=== PATIENT | male | born 1990 | race Caucasian/White ===

== ENCOUNTER 2022-11-28 00:26 | Emergency (ER) | payer BC ==
[2022-11-28 00:40] VITALS: BP 117/79; PULSE 66; RESP 18; TEMP 97.4
[2022-11-28] MEDS ORDERED: DIPH,PERTUS(ACELL)TETVAC-LF 0.5 ML VIAL IM ONE (01:11)
--- NOTE | 2022-11-28 01:18 | ED ---
General Adult HPI - General Chief complaint: Skin/Abscess/Foreign Body Stated complaint: Fall, Head Injury Time Seen by Provider: 11/28/22 01:03 Source: patient, RN notes reviewed, old records reviewed Mode of arrival: ambulatory - History of Present Illness Initial comments: 32-year-old male presenting for evaluation of scalp injury. Patient was wearing a hat with the patient and tripped and fell striking the top of his head. The patient had lacerated his scalp and there was bleeding. No loss conscious. No anticoagulation. - Related Data Allergies Allergy/AdvReac Type Severity Reaction Status Date / Time No Known Allergies Allergy Verified 11/28/22 00:40 Review of Systems ROS Statement: Those systems with pertinent positive or pertinent negative responses have been documented in the HPI. ROS Other: All systems not noted in ROS Statement are negative. Past Medical History Past Medical History: No Reported History History of Any Multi-Drug Resistant Organisms: None Reported Past Surgical History: No Surgical Hx Reported Past Psychological History: No Psychological Hx Reported Smoking Status: Never smoker Past Alcohol Use History: Occasional Past Drug Use History: None Reported General Exam General appearance: alert Head exam: Present: other (J-shaped laceration approximately 1 cm central scalp) Eye exam: Present: normal appearance, PERRL ENT exam: Present: normal exam Neck exam: Present: normal inspection. Absent: tenderness, meningismus Respiratory exam: Present: normal lung sounds bilaterally. Absent: respiratory distress, wheezes Cardiovascular Exam: Present: regular rate, normal rhythm GI/Abdominal exam: Present: soft. Absent: distended, tenderness Neurological exam: Present: alert, oriented X3, CN II-XII intact. Absent: motor sensory deficit Skin exam: Present: warm, dry Course Vital Signs 11/28/22 00:29 Temperature 97.4 F L Pulse Rate 66 Respiratory 18 Rate Blood Pressure 117/79 O2 Sat by Pulse 98 Oximetry Procedures - Laceration Laceration #1 Consent Obtained: verbal consent Indication: laceration Site: scalp Size (cm): 1 Description: flap Depth: simple, single layer Pre-repair: wound explored, irrigated extensively Type of Sutures: other (jone) Number of Sutures: 1 Technique: simple, interrupted Medical Decision Making - Medical Decision Making Was pt. sent in by a medical professional or institution (, PA, GROUP HOME PARAPROFESSIONAL, urgent care, hospital, or alf...) When possible be specific @ -No Did you speak to anyone other than the patient for history (EMS, parent, family, police, friend...)? What history was obtained from this source @ -No Did you review nursing and triage notes (agree or disagree)? Why? @ -I reviewed and agree with nursing and triage notes Were old charts reviewed (outside hosp., previous admission, EMS record, old EKG, old radiological studies, urgent care reports/EKG's, alf records)? Report findings @ -No old charts were reviewed Differential Diagnosis (chest pain, altered mental status, abdominal pain women, abdominal pain men, vaginal bleeding, weakness, fever, dyspnea, syncope, headache, dizziness, GI bleed, back pain, seizure, CVA, palpatations, mental health, musculoskeletal)? @ -Scalp laceration EKG interpreted by me (3pts min.). @ -As above X-rays interpreted by me (1pt min.). @ -None done CT interpreted by me (1pt min.). @ -None done U/S interpreted by me (1pt. min.). @ -None done What testing was considered but not performed or refused? (CT, X-rays, U/S, labs)? Why? @ -None What meds were considered but not given or refused? Why? @ -None Did you discuss the management of the patient with other professionals (professionals i.e. , PA, GROUP HOME PARAPROFESSIONAL, lab, RT, psych nurse, psychologist social, flexboard operator, teacher, maritime officer, case packer)? Give summary @ -No Was smoking cessation discussed for >3mins.? @ -No Was critical care preformed (if so, how long)? @ -No Were there social determinants of health that impacted care today? How? (Homelessness, low income, unemployed, alcoholism, drug addiction, transpor tation, low edu. Level, literacy, decrease access to med. care, long-term, rehab)? @ -No Was there de-escalation of care discussed even if they declined (Discuss DNR or withdrawal of care, Hospice)? DNR status @ -No What co-morbidities impacted this encounter? (DM, HTN, Smoking, COPD, CAD, Cancer, CVA, ARF, Chemo, Hep., AIDS, mental health diagnosis, sleep apnea, morbid obesity)? @ -None Was patient admitted / discharged? Hospital course, mention meds given and route, prescriptions, significant lab abnormalities, going to OR and other pertinent info. @ -Scalp laceration, stapled to the emergency department. Discharged home Undiagnosed new problem with uncertain prognosis? @ -No Drug Therapy requiring intensive monitoring for toxicity (Heparin, Nitro, Insulin, Cardizem)? @ -No Were any procedures done? @ -No Diagnosis/symptom? @ -Scalp laceration Acute, or Chronic, or Acute on Chronic? @ -acute Uncomplicated (without systemic symptoms) or Complicated (systemic symptoms)? @ -default Side effects of treatment? @ -No Exacerbation, Progression, or Severe Exacerbation? @ -No Poses a threat to life or bodily function? How? (Chest pain, [place], [place], pneumonia, PE, COPD, DKA, ARF, appy, cholecystitis, CVA, Diverticulitis, Homicidal, Suicidal, threat to staff... and all critical care pts) @ -No Disposition Clinical Impression: Scalp laceration Disposition: HOME SELF-CARE Condition: Good Instructions (If sedation given, give patient instructions): Laceration (ED) Additional Instructions: Please return for staple removal in 10-14 days Is patient prescribed a controlled substance at d/c from ED?: No Referrals: None,Stated [Primary Care Provider] - 1-2 days Time of Disposition: 01:18
== END 2022-11-28 01:43 | disposition home or self-care (01) ==
LOC: EC 00:26
DX: S01.01XA Laceration without foreign body of scalp, initial encounter (principal); Z23 Encounter for immunization; W01.0XXA Fall on same level from slipping, tripping and stumbling without subsequent striking against object, initial encounter
CPT/HCPCS: 12001; 90471; 90715; 99282

== ENCOUNTER 2023-02-26 21:24 | Emergency (ER) | payer BC ==
[2023-02-26 22:06] VITALS: BP 121/70; PULSE 57; RESP 18; TEMP 98.2
[2023-02-26] MEDS ORDERED: TOPICAL SKIN ADHESIVE 1 EACH AMP TOPICAL ONE (22:34)
--- NOTE | 2023-02-26 22:38 | ED ---
General Adult HPI - General Chief complaint: Syncope Stated complaint: syncope Time Seen by Provider: 02/26/23 22:17 Source: patient Mode of arrival: ambulatory Limitations: no limitations - History of Present Illness Initial comments: Jhonny is a healthy 32-year-old male presents the ER today after a syncopal episode at home. Patient reports he was standing up urinating when he began to get lightheaded his vision got dark and the next thing he knew he was on the floor. He had struck his chin on the toilet. Patient denies any chest pain, palpitations or shortness of breath. Denies any headache or vision changes. Complains only of laceration on his chin. Tetanus was updated less than 2 years ago. Patient has no significant past medical history. No cardiac history. No history of arrhythmias. No history of DVT or PE. - Related Data Allergies Allergy/AdvReac Type Severity Reaction Status Date / Time No Known Allergies Allergy Verified 02/26/23 22:02 Review of Systems ROS Statement: Those systems with pertinent positive or pertinent negative responses have been documented in the HPI. ROS Other: All systems not noted in ROS Statement are negative. Past Medical History Past Medical History: No Reported History History of Any Multi-Drug Resistant Organisms: None Reported Past Surgical History: No Surgical Hx Reported Past Psychological History: No Psychological Hx Reported Smoking Status: Never smoker Past Alcohol Use History: Occasional Past Drug Use History: None Reported General Exam - General Exam Comments Initial Comments: Physical Exam GENERAL: Patient is well-developed and well-nourished. Patient is nontoxic and well- hydrated and is in no distress. HENT: Normocephalic Approximately 1 cm laceration on the inferior side of the chin, no active bleeding TMs normal bilaterally. Tympanic EYES: PERRL, EOMI PULMONARY: Unlabored respirations. No audible rales rhonchi or wheezing was noted. CARDIOVASCULAR: There is a regular rate and rhythm without any murmurs gallops or rubs. ABDOMEN: Soft and nontender with normal bowel sounds. SKIN: Skin is clear with no lesions or rashes and otherwise unremarkable. : Deferred NEUROLOGIC: Patient is alert and oriented x3. Moving all extremities spontaneously MUSCULOSKELETAL: Normal extremities with adequate strength and full range of motion. No lower extremity swelling or edema. No calf tenderness. No midline cervical spine tenderness PSYCHIATRIC: Normal psychiatric evaluation. Limitations: no limitations Course Vital Signs 02/26/23 22:02 Temperature 98.2 F Pulse Rate 57 L Respiratory 18 Rate Blood Pressure 121/70 O2 Sat by Pulse 98 Oximetry EKG Findings - EKG Comments: EKG Findings:: EKG was ordered and interpreted by me, EKG was obtained at 2214 rate is 66 rhythm is narrow complex regular rhythm with a P-wave before each QRS is consistent with a sinus rhythm. There is normal axis, normal intervals, ND 159, QRS 106, QTC 387, There are no acute ST elevations or depressions no evidence of ischemia, infarction or arrhythmia. Procedures - Laceration Laceration #1 Consent Obtained: verbal consent Indication: laceration Site: face Size (cm): 1 Description: linear Depth: simple, single layer Pre-repair: wound explored, deep structures intact Type of Sutures: other (Skin glue) Patient Tolerated Procedure: well, no complications Medical Decision Making - Medical Decision Making Patient was seen and evaluated history is obtained from patient. 32-year-old male episode of micturition syncope. Patient has a laceration to his chin his tetanus at this is up-to-date. His EKG was nonischemic with no arrhythmias. His vital signs were stable in the emergency department. At this time further workup for syncope is not indicated as the patient asymptomatic and stable in the ER. Patient was advised to return to the emergency department should he have recurrent syncope or any new or concerning symptoms. wound was repaired and patient was stable for discharge home with outpatient follow-up. Was pt. sent in by a medical professional or institution (, PA, GARD[employer] EQUIPMENT MECHANIC, urgent care, hospital, or senior living...) When possible be specific @ -No Did you speak to anyone other than the patient for history (EMS, parent, family, police, friend...)? What history was obtained from this source @ - at bedside Did you review nursing and triage notes (agree or disagree)? Why? @ -I reviewed and agree with nursing and triage notes Were old charts reviewed (outside hosp., previous admission, EMS record, old EKG, old radiological studies, urgent care reports/EKG's, senior living records)? Report findings @ -No old charts were reviewed Differential Diagnosis (chest pain, altered mental status, abdominal pain women, abdominal pain men, vaginal bleeding, weakness, fever, dyspnea, syncope, headache, dizziness, GI bleed, back pain, seizure, CVA, palpatations, mental health, musculoskeletal)? @ -Differential Syncope: Valvular disease, hypertrophic cardiomyopathy, pulmonary embolism, tamponade, tachycardia, bradycardia, [place], hypovolemia, hemorrhage, dissection, anemia, intracranial hemorrhage, seizure, hypoglycemia, carbon monoxide poisoning, this is not meant to be an all-inclusive list. EKG interpreted by me (3pts min.). @ -As above X-rays interpreted by me (1pt min.). @ -None done CT interpreted by me (1pt min.). @ -None done U/S interpreted by me (1pt. min.). @ -None done What testing was considered but not performed or refused? (CT, X-rays, U/S, labs)? Why? @ -None What meds were considered but not given or refused? Why? @ -None Did you discuss the management of the patient with other professionals (anusha candelaria i.e. , PA, G[employer] EQUIPMENT MECHANIC, lab, RT, psych nurse, social media editor, door clamp operator, teacher, gunnery/ordnance officer, family service caseworker)? Give summary @ -No Was smoking cessation discussed for >3mins.? @ -No Was critical care preformed (if so, how long)? @ -No Were there social determinants of health that impacted care today? How? (Homelessness, low income, unemployed, alcoholism, drug addiction, transportation, low edu. Level, literacy, decrease access to med. care, care home, rehab)? @ -No Was there de-escalation of care discussed even if they declined (Discuss DNR or withdrawal of care, Hospice)? DNR status @ -No What co-morbidities impacted this encounter? (DM, HTN, Smoking, COPD, CAD, Cancer, CVA, ARF, Chemo, Hep., AIDS, mental health diagnosis, sleep apnea, morbid obesity)? @ -None Was patient admitted / discharged? Hospital course, mention meds given and route, prescriptions, significant lab abnormalities, going to OR and other pertinent info. @ -Discharge Undiagnosed new problem with uncertain prognosis? @ -No Drug Therapy requiring intensive monitoring for toxicity (Heparin, Nitro, Insulin, Cardizem)? @ -No Were any procedures done? @ -Laceration repair as above Diagnosis/symptom? @ -Syncope Acute, or Chronic, or Acute on Chronic? @ -Acute Uncomplicated (without systemic symptoms) or Complicated (systemic symptoms)? @ -Complicated Side effects of treatment? @ -No Exacerbation, Progression, or Severe Exacerbation? @ -No Poses a threat to life or bodily function? How? (Chest pain, [place], [place], pneumonia, PE, COPD, DKA, ARF, appy, cholecystitis, CVA, Diverticulitis, Homicidal, Suicidal, threat to staff... and all critical care pts) @ -NO Diagnosis/symptom? @ -Chin laceration Acute, or Chronic, or Acute on Chronic? @ -Acute Uncomplicated (without systemic symptoms) or Complicated (systemic symptoms)? @ -Uncomplicated Side effects of treatment? @ -none Exacerbation, Progression, or Severe Exacerbation] @ -no Poses a threat to life or bodily function? @ -no Disposition Clinical Impression: Syncope, Chin laceration Disposition: HOME SELF-CARE Condition: Stable Instructions (If sedation given, give patient instructions): Syncope (DC) Is patient prescribed a controlled substance at d/c from ED?: No Referrals: None,Stated [Primary Care Provider] - 1-2 days
== END 2023-02-26 23:15 | disposition home or self-care (01) ==
LOC: EC 21:24
DX: S01.81XA Laceration without foreign body of other part of head, initial encounter (principal); R55 Syncope and collapse; W01.198A Fall on same level from slipping, tripping and stumbling with subsequent striking against other object, initial encounter; Y92.002 Bathroom of unspecified non-institutional (private) residence as the place of occurrence of the external cause
CPT/HCPCS: 12011; 93005; 99284

== ENCOUNTER 2023-08-05 15:09 | Observation (INO) | payer BC ==
[2023-08-05 15:30] LABS: Glucose,Whole Blood 99 mg/dL (70-110)
[2023-08-05 16:12] LABS: African American GFR (CKD) >90 (>60 ml/min/1.73 sqM); Anion Gap 15 mmol/L; Blood Urea Nitrogen 18 mg/dL (9-20); Calcium 10.1 mg/dL (8.4-10.2); Carbon Dioxide 22 mmol/L (22-30); Chloride 104 mmol/L (98-107); Glucose 98 mg/dL (74-99); Non-African American GFR(CKD) >90 (>60 ml/min/1.73 sqM); Potassium 3.7 mmol/L (3.5-5.1); Sodium 141 mmol/L (137-145)
[2023-08-05 16:20] LABS: Basophils % (A) 0 %; Eosinophils # (A) 0.2 k/uL (0-0.7); Eosinophils % (A) 2 %; HCT 45.1 % (39.0-53.0); HGB 15.4 gm/dL (13.0-17.5); Lymphocytes # (A) 3.1 k/uL (1.0-4.8); Lymphocytes % (A) 32 %; MCH 30.1 pg (25.0-35.0); MCHC 34.1 g/dL (31.0-37.0); MCV 88.2 fL (80.0-100.0); Mean Platelet Volume 9.6; Monocytes # (A) 0.6 k/uL (0-1.0); Monocytes % (A) 6 %; Neutrophils # (A) 5.6 k/uL (1.3-7.7); Neutrophils % (A) 58 %; Platelet Count 171 k/uL (150-450); RBC 5.12 m/uL (4.30-5.90); RDW 12.9 % (11.5-15.5); WBC 9.6 k/uL (3.8-10.6)
[2023-08-05 16:26] LABS: INR 0.9 (<1.2); Partial Thromboplastin Time 23.4 sec (22.0-30.0); Prothrombin Time 10.3 sec (10.0-12.5)
[2023-08-05] MEDS ORDERED: SODIUM CHLORIDE 0.9% 1,000 ML IV STA (16:44)
--- NOTE | 2023-08-05 16:51 | ED ---
Dizziness HPI - General Chief Complaint: Dizziness Stated Complaint: AMS Time Seen by Provider: 08/05/23 16:17 Source: patient, RN notes reviewed Mode of arrival: ambulatory Limitations: no limitations - History of Present Illness Initial Comments: This is a pleasant 32-year-old male who was at work at about 7:45 AM. Patient states he was at the [employer] machine. Patient states he started getting lightheaded and then became very pale. Patient states he leaned up against a wall. Patient also states he was incontinent of urine. Patient states that for a few minutes after that everything is slightly confused. Patient states after he went to the office he noticed he had some tingling in both fingers. States that he had some trouble stringing some words together after words. Patient states he ended up calling his fiance and then going home. Patient states now he is complaining some stiffness and fatigue. She also states that he had a bit of chest tightness at times throughout the day. Other focal weakness. No vision or hearing disturbance. No definitive seizure activity. This was witnessed by a coworker. There was no definitive seizure activity although there was the urinary incontinence. No headache, no fever or chills, no changes in vision or hearing, no sore throat or difficulty with speech, no neck pain, no chest pain or shortness of breath, no abdominal pain, no nausea or vomiting, no changes in urination or bowel movements, no extremity pain, no skin rashes or lesions. Past medical, surgical, social, and family history reviewed. Complaint: lightheadedness - Related Data Allergies Allergy/AdvReac Type Severity Reaction Status Date / Time No Known Allergies Allergy Verified 08/05/23 15:24 Review of Systems ROS Statement: Those systems with pertinent positive or pertinent negative responses have been documented in the HPI. ROS Other: All systems not noted in ROS Statement are negative. Past Medical History Past Medical History: No Reported History Additional Past Medical History / Comment(s): arthritis in bilateral knees walks with a cane History of Any Multi-Drug Resistant Organisms: None Reported Past Surgical History: No Surgical Hx Reported Past Psychological History: Depression Smoking Status: Never smoker Past Alcohol Use History: Occasional Past Drug Use History: None Reported General Exam - General Exam Comments Initial Comments: Patient is alert and oriented 4, cranial nerves II through XII are intact, no focal neurologic deficits. Lynda Coma Scale is 15. Pronator drift is negative. Romberg is negative. NIH score is 0 Limitations: no limitations General appearance: alert, in no apparent distress Head exam: Present: atraumatic, normocephalic, normal inspection Eye exam: Present: normal appearance, PERRL, EOMI. Absent: scleral icterus, conjunctival injection, periorbital swelling Pupils: Absent: irregular, unequal ENT exam: Present: normal exam, normal oropharynx, mucous membranes dry, mucous membranes moist, normal external ear exam Neck exam: Present: normal inspection, full ROM. Absent: tenderness, meningismus, lymphadenopathy Respiratory exam: Present: normal lung sounds bilaterally. Absent: respiratory distress, wheezes, rales, rhonchi, stridor, chest wall tenderness, accessory muscle use, decreased breath sounds, prolonged expiratory Cardiovascular Exam: Present: regular rate, normal rhythm, normal heart sounds. Absent: systolic murmur, diastolic murmur, rubs, gallop, clicks GI/Abdominal exam: Present: soft, normal bowel sounds. Absent: distended, tenderness, guarding, rebound, rigid Extremities exam: Present: normal inspection, full ROM, normal capillary refill. Absent: tenderness, pedal edema, joint swelling, calf tenderness Back exam: Present: normal inspection Neurological exam: Present: alert, oriented X3, CN II-XII intact Expanded Cranial nerves: EOM's Intact: Normal, Gag Reflex: Normal, Tongue Deviation: Normal, Nystagmus: Normal, Facial Sensation: Normal, Facial Palsy with Forehead Movement: Normal, Facial Palsy without Forehead Movement: Normal Cerebellar function: Finger to Nose: Normal, Heel to Hernandez: Normal, Romberg: N ormal Upper motor neuron: Pronator Drift: Normal, Sensory Extinction: Normal Sensory exam: Upper Extremity Light Touch: Normal, Upper Extremity Pin Prick: Normal, Upper Extremity Temperature: Normal, UE 2 Point Discrimination: Normal, Lower Extremity Light Touch: Normal, Lower Extremity Pin Prick: Normal Motor strength exam: RUE: 5, LUE: 5, RLE: 5, LLE: 5 Eye Response: (4) open spontaneously Motor Response: (6) obeys commands Verbal Response: (5) oriented Psychiatric exam: Present: normal affect, normal mood Skin exam: Present: warm, dry, intact, normal color. Absent: rash Course Vital Signs 08/05/23 08/05/23 08/05/23 15:24 17:51 17:52 Temperature 98.1 F Pulse Rate 71 Respiratory 16 Rate Blood Pressure 128/80 127/83 135/83 O2 Sat by Pulse 99 Oximetry 08/05/23 17:58 Temperature Pulse Rate Respiratory Rate Blood Pressure 130/79 O2 Sat by Pulse Oximetry - Reevaluation(s) Reevaluation #1: 08/05/23 17:59 Patient reevaluated, currently resting comfortably and bed. Suspect based on the patient's symptomology had a near syncopal episode. However the patient does have a ECG changes. Heart score is basically to all but the patient does not know his family history. Nonsmoker. Reevaluation #2: 08/05/23 18:00 Call placed for the hospitalist physician Reevaluation #3: 08/05/23 18:10 Case discussed with Brendon, the APC for [facility]. Patient admitted to Dr. Ortiz EKG Findings - EKG Comments: EKG Findings:: ECG independently interpreted by me at 1700 reveals rate of 66, normal intervals, cysts, possible left ventricular hypertrophy based on computers interpretation. Nonspecific changes in QRS morphology. Last EKG January 2023. [facility] ED attending physician. Medical Decision Making - Medical Decision Making Was pt. sent in by a medical professional or institution? @ -Patient sent in by urgent care Did you speak to anyone other than the patient for history? @ -Sara Ramirez Did you review nursing and triage notes? @ -agree Were old charts reviewed? @ -Previous ER visit from January 2023 reviewed. Had a syncopal episode at that time. Differential Diagnosis? @ -Differential diagnosis includes but not limited to: Near syncope, dehydration, seizure like activity, to be consistent with acute CVA given the normal neurological exam and lack of lateralizing symptoms. Electrolyte disturbance, illogical disorder, less likely infectious process EKG interpreted by me (3pts min.)? @ -[none] X-rays interpreted by me (1pt min.)? @ -[none] CT interpreted by me (1pt min.)? @ -[none] U/S interpreted by me (1pt. min.)? @ -[none] What testing was considered but not performed? (CT, X-rays, U/S, labs)? Why? @ Computed tomography scan indicated for possible new What meds were considered but not given? Why? @ -[none] Did you discuss the management of the patient with other professionals? @ -[professionals i.e. Dr, PA, WATER METER INSTALLER, Lab, RT, Psych Nurse, Research Group Director, Wire Mill Operator, Teacher, Design Lead, community case manager? Give summary] Did you reconcile home meds? @ -[none] Was smoking cessation discussed for >3mins.? @ -[none] Was critical care preformed (if so, how long)? @ -[none] Were there social determinants of health that impacted care today? How? (Homelessness, low income, unemployed, alcoholism, drug addiction, transportation, low edu. Level, literacy, decrease access to med. care, retirement, rehab)? @ -[Homelessness, low income, unemployed, alcoholism, drug addiction, transportation, low edu. Level, literacy, decrease access to med. care, retirement, rehab?] Was there de-escalation of care discussed even if they declined? (Discuss DNR or withdrawal of care, Hospice)? @ -[Discuss DNR or withdrawal of care, Hospice?] What co-morbidities impacted this encounter? (DM, HTN, Smoking, COPD, CAD, Cancer, CVA, Hep., AIDS, mental health diagnosis, sleep apnea, morbid obesity)? @ -[DM, HTN, Smoking, COPD, CAD, Cancer, CVA, Hep., AIDS, mental health diagnosis, sleep apnea, morbid obesity?] Was patient admitted / discharged? @ -[hospital course] Undiagnosed new problem with uncertain prognosis? @ -[none] Drug Therapy requiring intensive monitoring for toxicity (Heparin, Nitro, Insulin, Cardizem)? @ -[none] Were any procedures done? @ -[none] Diagnosis/symptom? @ -[default] Acute, or Chronic, or Acute on Chronic? @ -[default] Uncomplicated (without systemic symptoms) or Complicated (systemic symptoms)? @ -[default] Side effects of treatment? @ -[none] Exacerbation, Progression, or Severe Exacerbation] @ -[no] Poses a threat to life or bodily function? @ -[no] - Lab Data Result diagrams: 08/05/23 15:45 08/05/23 15:45 Lab Results 08/05/23 08/05/23 08/05/23 Range/Units 15:28 15:45 15:45 WBC 9.6 (3.8-10.6) k/uL RBC 5.12 (4.30-5.90) m/uL Hgb 15.4 (13.0-17.5) gm/dL Hct 45.1 (39.0-53.0) % MCV 88.2 (80.0-100.0) fL MCH 30.1 (25.0-35.0) pg MCHC 34.1 (31.0-37.0) g/dL RDW 12.9 (11.5-15.5) % Plt Count 171 (150-450) k/uL MPV 9.6 Neutrophils % 58 % Lymphocytes % 32 % Monocytes % 6 % Eosinophils % 2 % Basophils % 0 % Neutrophils # 5.6 (1.3-7.7) k/uL Lymphocytes # 3.1 (1.0-4.8) k/uL Monocytes # 0.6 (0-1.0) k/uL Eosinophils # 0.2 (0-0.7) k/uL Basophils # 0.0 (0-0.2) k/uL PT 10.3 (10.0-12.5) sec INR 0.9 (<1.2) APTT 23.4 (22.0-30.0) sec Sodium (137-145) mmol/L Potassium (3.5-5.1) mmol/L Chloride (98-107) mmol/L Carbon Dioxide (22-30) mmol/L Anion Gap mmol/L BUN (9-20) mg/dL Creatinine (0.66-1.25) mg/dL Est GFR (CKD-EPI)AfAm (>60 ml/min/1.73 sqM) Est GFR (CKD-EPI)NonAf (>60 ml/min/1.73 sqM) Glucose (74-99) mg/dL POC Glucose (mg/dL) 99 (70-110) mg/dL POC Glu Rehabilitation Engineer ID Leonard Belcher Calcium (8.4-10.2) mg/dL Magnesium (1.6-2.3) mg/dL Creatine Kinase (55-170) U/L Troponin I (0.000-0.034) ng/mL Urine WBC (0-5) /hpf Urine Opiates Screen (NotDetected) Ur Oxycodone Screen (NotDetected) Urine Methadone Screen (NotDetected) Ur Propoxyphene Screen (NotDetected) Ur Barbiturates Screen (NotDetected) U Tricyclic Antidepress (NotDetected) Ur Phencyclidine Scrn (NotDetected) Ur Amphetamines Screen (NotDetected) U Methamphetamines Scrn (NotDetected) U Benzodiazepines Scrn (NotDetected) Urine Cocaine Screen (NotDetected) U Marijuana (THC) Screen (NotDetected) Serum Alcohol mg/dL 08/05/23 08/05/23 08/05/23 Range/Units 15:45 15:45 15:45 WBC (3.8-10.6) k/uL RBC (4.30-5.90) m/uL Hgb (13.0-17.5) gm/dL Hct (39.0-53.0) % MCV (80.0-100.0) fL MCH (25.0-35.0) pg MCHC (31.0-37.0) g/dL RDW (11.5-15.5) % Plt Count (150-450) k/uL MPV Neutrophils % % Lymphocytes % % Monocytes % % Eosinophils % % Basophils % % Neutrophils # (1.3-7.7) k/uL Lymphocytes # (1.0-4.8) k/uL Monocytes # (0-1.0) k/uL Eosinophils # (0-0.7) k/uL Basophils # (0-0.2) k/uL PT (10.0-12.5) sec INR (<1.2) APTT (22.0-30.0) sec Sodium 141 (137-145) mmol/L Potassium 3.7 (3.5-5.1) mmol/L Chloride 104 (98-107) mmol/L Carbon Dioxide 22 (22-30) mmol/L Anion Gap 15 mmol/L BUN 18 (9-20) mg/dL Creatinine 0.79 (0.66-1.25) mg/dL Est GFR (CKD-EPI)AfAm >90 (>60 ml/min/1.73 sqM) Est GFR (CKD-EPI)NonAf >90 (>60 ml/min/1.73 sqM) Glucose 98 (74-99) mg/dL POC Glucose (mg/dL) (70-110) mg/dL POC Glu Rehabilitation Engineer ID Calcium 10.1 (8.4-10.2) mg/dL Magnesium 1.9 (1.6-2.3) mg/dL Creatine Kinase 100 (55-170) U/L Troponin I <0.012 (0.000-0.034) ng/mL Urine WBC (0-5) /hpf Urine Opiates Screen (NotDetected) Ur Oxycodone Screen (NotDetected) Urine Methadone Screen (NotDetected) Ur Propoxyphene Screen (NotDetected) Ur Barbiturates Screen (NotDetected) U Tricyclic Antidepress (NotDetected) Ur Phencyclidine Scrn (NotDetected) Ur Amphetamines Screen (NotDetected) U Methamphetamines Scrn (NotDetected) U Benzodiazepines Scrn (NotDetected) Urine Cocaine Screen (NotDetected) U Marijuana (THC) Screen (NotDetected) Serum Alcohol mg/dL 08/05/23 08/05/23 Range/Units 16:23 17:17 WBC (3.8-10.6) k/uL RBC (4.30-5.90) m/uL Hgb (13.0-17.5) gm/dL Hct (39.0-53.0) % MCV (80.0-100.0) fL MCH (25.0-35.0) pg MCHC (31.0-37.0) g/dL RDW (11.5-15.5) % Plt Count (150-450) k/uL MPV Neutrophils % % Lymphocytes % % Monocytes % % Eosinophils % % Basophils % % Neutrophils # (1.3-7.7) k/uL Lymphocytes # (1.0-4.8) k/uL Monocytes # (0-1.0) k/uL Eosinophils # (0-0.7) k/uL Basophils # (0-0.2) k/uL PT (10.0-12.5) sec INR (<1.2) APTT (22.0-30.0) sec Sodium (137-145) mmol/L Potassium (3.5-5.1) mmol/L Chloride (98-107) mmol/L Carbon Dioxide (22-30) mmol/L Anion Gap mmol/L BUN (9-20) mg/dL Creatinine (0.66-1.25) mg/dL Est GFR (CKD-EPI)AfAm (>60 ml/min/1.73 sqM) Est GFR (CKD-EPI)NonAf (>60 ml/min/1.73 sqM) Glucose (74-99) mg/dL POC Glucose (mg/dL) (70-110) mg/dL POC Glu Rehabilitation Engineer ID Calcium (8.4-10.2) mg/dL Magnesium (1.6-2.3) mg/dL Creatine Kinase (55-170) U/L Troponin I (0.000-0.034) ng/mL Urine WBC <1 (0-5) /hpf Urine Opiates Screen Not Detected (NotDetected) Ur Oxycodone Screen Not Detected (NotDetected) Urine Methadone Screen Not Detected (NotDetected) Ur Propoxyphene Screen Not Detected (NotDetected) Ur Barbiturates Screen Not Detected (NotDetected) U Tricyclic Antidepress Not Detected (NotDetected) Ur Phencyclidine Scrn Not Detected (NotDetected) Ur Amphetamines Screen Not Detected (NotDetected) U Methamphetamines Scrn Not Detected (NotDetected) U Benzodiazepines Scrn Not Detected (NotDetected) Urine Cocaine Screen Not Detected (NotDetected) U Marijuana (THC) Screen Not Detected (NotDetected) Serum Alcohol <10 mg/dL Disposition Clinical Impression: Chest pain, Near syncope, Acute electrocardiogram changes Disposition: ADMITTED IP TO THIS [facility] Condition: Good Referrals: None,Stated [Primary Care Provider] - 1-2 days Time of Disposition: 18:11 Decision to Admit Reason: Admit from EC Decision Time: 18:11
[2023-08-05 17:24] LABS: Magnesium 1.9 mg/dL (1.6-2.3)
--- NOTE | 2023-08-05 17:42 | CT ---
EXAMINATION TYPE: CT brain wo con CT DLP: 1173.4 mGycm, Automated exposure control for dose reduction was used. DATE OF EXAM: 08/05/2023 5:28 PM COMPARISON: None. CLINICAL INDICATION:Male, 32 years old with history of seizure activity, Pt presents lightheaded, diz zy, nausea, wet himself this morning while at work, having trouble stringing words together. Symptoms started at 0745. TECHNIQUE: Brain: Axial CT images of the brain were obtained with coronal and sagittal reformats created and rev iewed. Contrast used: None. Oral contrast used: None. FINDINGS: Brain: Extra-axial spaces: No abnormal extra-axial fluid collections. Ventricular system: Within normal limits Cerebral parenchyma: No acute intraparenchymal hemorrhage or mass effect. The chaudhry-white junction is well differentiated. Cerebellum: Unremarkable. Mass effect: No evidence of midline shift. Intracranial vasculature: unremarkable Soft tissues: Normal. Calvarium/osseous structures: No depressed skull fracture. Paranasal sinuses and mastoid air cells: Mild scattered paranasal sinus disease. Visualized orbits: Orbital contents are intact. IMPRESSION: No acute intracranial process.
[2023-08-05 17:49] LABS: Amphetamine Screen,Urine Not Detected (NotDetected); Barbiturate Screen,Urine Not Detected (NotDetected); Benzodiazepines Screen,Urine Not Detected (NotDetected); Cocaine Screen,Urine Not Detected (NotDetected); Methadone Screen, Urine Not Detected (NotDetected); Opiate Screen,Urine Not Detected (NotDetected); Oxycodone Screen, Urine Not Detected (NotDetected); Phencyclidine Screen,Urine Not Detected (NotDetected); Tricyclic Antidepressant,Urine Not Detected (NotDetected); Urn Cannabinoid Scrn Not Detected (NotDetected)
[2023-08-05 17:58] LABS: WBC,Urine <1 /hpf (0-5)
[2023-08-05 18:11] LABS: Appearance,Urine Cloudy (Clear); Bilirubin,Urine Negative (Negative); Color,Urine Light Yellow; Glucose,Urine (UA) Negative (Negative); Ketones,Urine Negative (Negative); PH, Urine 7.5 (5.0-8.0); Protein,Urine Negative (Negative); Specific Gravity,Urine 1.015 (1.001-1.035)
[2023-08-05] MEDS ORDERED: NALOXONE 0.4 MG/ML 1 ML VIAL IV PRN (18:11)
[2023-08-05] MEDS ORDERED: ACETAMINOPHEN TAB 325 MG TAB PO PRN (18:11)
[2023-08-05 18:12] LABS: Blood,Urine Negative (Negative); Leukocyte Esterase,Urine Negative (Negative); Nitrite,Urine Negative (Negative); Urobilinogen,Urine <2.0 mg/dL (<2.0)
--- NOTE | 2023-08-05 22:57 | P.HPIM ---
History of Present Illness H&P Date: 08/05/23 Patient is a 32-year-old male with no known PMH who presents to the emergency room after an episode of loss of consciousness. History supplemented by the patient's fiance at the bedside. 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 He does not recall the fall episode but states that he leaned up against a nearby objects and lost control of his bladder. He denied falling but states he may have lost consciousness. His colleagues nearby helped him down and called his fiance who came in to pick him up. She noticed that he appeared not like himself and although was answering s ome questions appropriately, "appeared to be in a gaze"and had word finding difficulty. No reports of facial asymmetry, focal weakness, shaking movements, or visual disturbances. They subsequently went to a diner where he had a large breakfast and then went home to sleep. Upon waking up at around 1 PM, patient appeared to be somewhat better but still not at his baseline as per the fiance. She then took him to an urgent care clinic where they advised him to go to the emergency room. The patient denies any prior history of such symptoms. Reports feeling essentially at his baseline at the time of interview. Does not recall the episode but denies experiencing chest discomfort, palpitations, shortness of breath. Denies history of seizures or stroke. Also denies experiencing tongue biting. He did state that he is currently eating less than usual due to orthodox fasts that his last major meal was at around 4 PM the night before and had a banana just prior to going to work this morning at around 6. Of note the patient did have an episode of syncope during micturition in 02/21 are he suffered a laceration to his chin. In the emergency room, a CT brain was unremarkable. EKG revealed sinus rhythm at 66 bpm with inferior lead Q waves noted. With no other ST/T-wave changes noted as reviewed by me. Laboratory evaluation was unremarkable with troponin less than 0.012, d-dimer 0.18, UA and urine toxicology negative. Vital sign upon arrival at the emergency room her BP 121/70 with pulse 57, temp 98.2F, and SpO2 98% on room air. ED documentation reviewed and case discussed with ED provider. Review of systems: Pertinent positives and negatives as discussed in HPI, a complete review of systems was performed and all other systems are negative. Physical examination: Vital signs reviewed General: non toxic, no distress, appears at stated age, normal weight Derm: no unusual rashes/lesions, warm Head: atraumatic, normocephalic, symmetric Eyes: EOMI, no lid lag, anicteric sclera, pupils equal round reactive to light ENT: Nose and ears atraumatic Neck: No cervical lymphadenopathy, trachea midline, supple Mouth: no lip lesion, mucus membranes moist Cardiovascular: S1S2 reg, no murmur, positive dorsalis pedis pulse bilateral, no edema Lungs: CTA bilateral, no rhonchi, no rales, no accessory muscle use Abdominal: soft, nontender to palpation, no guarding Ext: muscle strength 5 out of 5 in all 4 extremities grossly, no gross muscle atrophy, no contractures, Neuro: CN II-XI grossly intact, no gross focal neuro deficits Psych: Alert, oriented, appropriate affect Assessment: Syncope, unclear etiology, rule out seizure versus cardiogenic in light of EKG changes Imaging: In the emergency room, a CT brain was unremarkable. EKG revealed sinus rhythm at 66 bpm with inferior lead Q waves noted. With no other ST/T-wave changes noted as reviewed by me. Data Review: Laboratory evaluation was unremarkable with troponin less than 0.012, d-dimer 0.18, UA and urine toxicology negative. Plan: Continue with cardiac monitoring Check orthostatics Echocardiogram Cardiology consulted Fall precautions Neurology consult for suspicion of seizure and possible EEG DVT prophylaxis: Heparin subql The patient is admitted with an anticipated less than 2 midnight stay for evaluation of syncope CODE STATUS: Full Code Discussed with: Patient Anticipated discharge place: Home Past Medical History Past Medical History: No Reported History Additional Past Medical History / Comment(s): arthritis in bilateral knees walks with a cane History of Any Multi-Drug Resistant Organisms: None Reported Past Surgical History: No Surgical Hx Reported Past Anesthesia/Blood Transfusion Reactions: No Reported Reaction Past Psychological History: Depression Smoking Status: Former smoker Past Alcohol Use History: Occasional Past Drug Use History: None Reported - Past Family History Mother Family Medical History: Hypertension Medications and Allergies Home Medications Medication Instructions Recorded Confirmed Type No Known Home Medications 08/05/23 08/05/23 History Allergies Allergy/AdvReac Type Severity Reaction Status Date / Time No Known Allergies Allergy Verified 08/05/23 19:13 Physical Exam Vitals: Vital Signs Temp Pulse Pulse Resp BP BP Pulse Ox 08/05/23 21:58 98.1 F 72 15 113/65 98 08/05/23 19:30 97.9 F 59 L 18 140/99 98 08/05/23 17:58 130/79 08/05/23 17:52 135/83 08/05/23 17:51 127/83 08/05/23 15:24 98.1 F 71 16 128/80 99 Intake and Output 08/05/23 08/05/23 08/05/23 06:59 14:59 22:59 Other: Weight 76.204 kg Results CBC & Chem 7: 08/05/23 15:45 08/05/23 15:45 Thrombosis Risk Factor Assmnt - Choose All That Apply Any of the Below Risk Factors Present?: No Other Risk Factors: No Other congenital or acquired thrombophilia - If yes, enter type in comment: No Thrombosis Risk Factor Assessment Level: Very Low Risk
[2023-08-06] MEDS: HEPARIN SODIUM,PORCINE 5,000 UNIT/ML 1 ML VIAL SQ SCH ×3 (00:57→17:07)
[2023-08-06] MEDS: ASPIRIN 81 MG PO SCH (09:45)
--- NOTE | 2023-08-06 10:20 | P.CRDCN ---
History of Present Illness History of present illness: HISTORY OF PRESENT ILLNESS: This is a 32-year-old male with no significant past medical history. 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 We have been asked to see the patient in consultation for chest pain and near syncope. Patient examined at the bedside. Patient states yesterday morning he was at work and was feeling in his normal state of health. He states in the morning he drank a bottle of water and had a banana for breakfast. 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 He states he also felt lightheaded and had blurred vision. He reports having an episode of incontinence. He states that he felt like he was going to pass out however he did not lose consciousness. His coworker had him go sit in the break room and his super visor came in to see him who noted he was pale. The patient reports having pins and needle sensation in his fingers at that time and states he could not get his words together. He reports feeling like his joints were stiff and his jaw felt like it was wired shut. Apparently a coworker noted he had some long blank staring as well. The patient reports having some mild chest discomfort yesterday as well. He reports it felt like a tensing up sensation in his chest with mild shortness of breath. He denied having any chest pain this morning at the time of examination. Orthostatic blood pressures were obtained which were negative. The patient denies a history of diabetes, hypertension, or hyperlipidemia. He is a nonsmoker. * EKG reveals sinus mechanism with Q waves inferiorly, new from previous EKG * Current home cardiac medications include none. * No previous echocardiogram available in EMR for review REVIEW OF SYSTEMS: At the time of my exam: CONSTITUTIONAL: Denies fever or chills. HEENT: Denies blurred vision, vision changes, or eye pain. Denies hemoptysis CARDIOVASCULAR: Denies chest pain. Denies orthopnea. Denies PND. Denies palpitations RESPIRATORY: Denies shortness of breath. GASTROINTESTINAL: Denies abdominal pain. Denies nausea or vomiting. HEMATOLOGIC: Denies bleeding disorders. GENITOURINARY: Denies any blood in urine. SKIN: Denies pruitis. Denies rash. PHYSICAL EXAM: VITAL SIGNS: Reviewed. GENERAL: Well-developed in no acute distress. HEENT: Head is normocephalic. Pupils are equal, round. Sclerae anicteric. Mucous membranes of the mouth are moist. Neck supple. No JVD or thyromegaly LUNGS: Respirations even and unlabored. Lungs essentially clear to auscultation bilaterally. HEART: Regular rate and rhythm. S1 and S2 heard. ABDOMEN: Soft. Nondistended. Nontender. EXTREMITIES: Normal range of motion. No clubbing or cyanosis. Peripheral pulses intact. No lower extremity edema NEUROLOGIC: Awake and alert. Oriented x 3. ASSESSMENT: Presyncope, possibly vasovagal in nature, cannot rule out neurologic etiology Chest pain, troponins negative 3 Abnormal EKG revealing Q waves inferiorly PLAN: An acute coronary event has been ruled out Begin aspirin 81 mg daily Check lipid panel Orthostatic blood pressures obtained in unremarkable Obtain 2-D echo to assess cardiac structure and function Await neurology evaluation Will consider stress testing pending neurology evaluation Further recommendations pending patient's course Nurse practitioner note has been reviewed by physician. Signing provider agrees with the documented findings, assessment, and plan of care. Past Medical History Past Medical History: No Reported History Additional Past Medical History / Comment(s): arthritis in bilateral knees walks with a cane History of Any Multi-Drug Resistant Organisms: None Reported Past Surgical History: No Surgical Hx Reported Past Anesthesia/Blood Transfusion Reactions: No Reported Reaction Past Psychological History: Depression Smoking Status: Former smoker Past Alcohol Use History: Occasional Past Drug Use History: None Reported - Past Family History Mother Family Medical History: Hypertension Medications and Allergies Home Medications Medication Instructions Recorded Confirmed Type No Known Home Medications 08/05/23 08/05/23 History Allergies Allergy/AdvReac Type Severity Reaction Status Date / Time No Known Allergies Allergy Verified 08/05/23 19:13 Physical Exam Vitals: Vital Signs Temp Pulse Pulse Pulse Pulse Pulse Resp 08/06/23 07:00 97.5 F L 57 L 59 L 55 L 18 08/06/23 01:04 98.1 F 58 L 15 08/05/23 21:58 98.1 F 72 15 08/05/23 19:30 97.9 F 59 L 18 08/05/23 17:58 08/05/23 17:52 08/05/23 17:51 08/05/23 15:24 98.1 F 71 16 BP BP BP BP BP Pulse Ox 08/06/23 07:00 129/86 138/98 125/83 99 08/06/23 01:04 119/74 97 08/05/23 21:58 113/65 98 08/05/23 19:30 140/99 98 08/05/23 17:58 130/79 08/05/23 17:52 135/83 08/05/23 17:51 127/83 08/05/23 15:24 128/80 99 Intake and Output 08/05/23 08/06/23 08/06/23 22:59 06:59 14:59 Other: Voiding Method Toilet # Voids 1 2 Weight 76.204 kg Results 08/05/23 15:45 08/05/23 15:45 Cardiac Enzymes 08/05/23 08/05/23 08/06/23 Range/Units 15:45 22:11 00:06 Troponin I <0.012 <0.012 <0.012 (0.000-0.034) ng/mL Coagulation 08/05/23 Range/Units 15:45 PT 10.3 (10.0-12.5) sec APTT 23.4 (22.0-30.0) sec CBC 08/05/23 Range/Units 15:45 WBC 9.6 (3.8-10.6) k/uL RBC 5.12 (4.30-5.90) m/uL Hgb 15.4 (13.0-17.5) gm/dL Hct 45.1 (39.0-53.0) % Plt Count 171 (150-450) k/uL Comprehensive Metabolic Panel 08/05/23 Range/Units 15:45 Sodium 141 (137-145) mmol/L Potassium 3.7 (3.5-5.1) mmol/L Chloride 104 (98-107) mmol/L Carbon Dioxide 22 (22-30) mmol/L BUN 18 (9-20) mg/dL Creatinine 0.79 (0.66-1.25) mg/dL Glucose 98 (74-99) mg/dL Calcium 10.1 (8.4-10.2) mg/dL Current Medications Generic Name Dose Route Start Last Admin Trade Name Freq PRN Reason Stop Dose Admin Acetaminophen 650 mg 08/05/23 18:11 Acetaminophen Tab 325 Mg Tab PO Q6HR PRN Mild Pain or Fever > 100.5 Heparin Sodium (Porcine) 5,000 unit 08/06/23 00:00 12/06/23 00:57 Heparin Sodium,Porcine 5,000 Unit/Ml 1 Ml Vial SQ 5,000 unit Q8HR EVA Administration Naloxone HCl 0.2 mg 08/05/23 18:11 Naloxone 0.4 Mg/Ml 1 Ml Vial IV Q2M PRN Opioid Reversal Intake and Output 08/05/23 08/06/23 08/06/23 22:59 06:59 14:59 Other: Voiding Method Toilet # Voids 1 2 Weight 76.204 kg 08/05/23 15:45 08/05/23 15:45
--- NOTE | 2023-08-06 11:15 | P.CNNES ---
History of Present Illness Consult date: 08/06/23 Requesting physician: Chan Valles Reason for Consult: suspected seizure History of Present Illness: This is a 5-year-old gentleman who presented emergency department because of a jerking, paresthesia of uppers extremities and blurry vision. Patient is accompanied with his fiance who is at bedside. 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 After the episode he had pierced degenerative of bilateral hands. He also had a urinary incontinence with this episode. He denies any tongue bite or bowel incontinence. He denies any history of seizure. According to his fiance she stated that the patient has been having episodes of shaking of the right upper extremity that has been going on after work and that's short duration and unsure exactly how long this been going on for. He does socially drinks alcohol. Denies any illicit drug use or tobacco use. She states her sister has history of seizure. Regarding his history he said it was normal he was at a couple days just postterm vaginal delivery and no complication. Some other workup during his hospital visit consisted of: CBC and chemistry panel is unremarkable. Initial serum glucose is 98. Troponin was less than 0.12. Urine drug screen is not detected. Shimmer alcohol was less than 10. CT head is reported as no acute intracranial process. I personally reviewed the CT head and I agree with report. EKG is reported as possible left ventricle hypertrophy at. Probable lateral myocardial infarction of indeterminate age. Inferior myocardial infarction of indeterminate age. Abnormal EKG. Review of Systems The positive and negative as per HPI Past Medical History Past Medical History: No Reported History Additional Past Medical History / Comment(s): arthritis in bilateral knees walks with a cane History of Any Multi-Drug Resistant Organisms: None Reported Past Surgical History: No Surgical Hx Reported Past Anesthesia/Blood Transfusion Reactions: No Reported Reaction Past Psychological History: Depression Smoking Status: Former smoker Past Alcohol Use History: Occasional Past Drug Use History: None Reported - Past Family History Mother Family Medical History: Hypertension Medications and Allergies Home Medications Medication Instructions Recorded Confirmed Type No Known Home Medications 08/05/23 08/05/23 History Allergies Allergy/AdvReac Type Severity Reaction Status Date / Time No Known Allergies Allergy Verified 08/05/23 19:13 Physical Examination - Vital Signs Vital Signs: Vital Signs Temp Pulse Pulse Pulse Pulse Pulse Resp 08/06/23 07:00 97.5 F L 57 L 59 L 55 L 18 08/06/23 01:04 98.1 F 58 L 15 08/05/23 21:58 98.1 F 72 15 08/05/23 19:30 97.9 F 59 L 18 08/05/23 17:58 08/05/23 17:52 08/05/23 17:51 08/05/23 15:24 98.1 F 71 16 BP BP BP BP BP Pulse Ox 08/06/23 07:00 129/86 138/98 125/83 99 08/06/23 01:04 119/74 97 08/05/23 21:58 113/65 98 08/05/23 19:30 140/99 98 08/05/23 17:58 130/79 08/05/23 17:52 135/83 08/05/23 17:51 127/83 08/05/23 15:24 128/80 99 Intake and Output 08/05/23 08/06/23 08/06/23 22:59 06:59 14:59 Other: Voiding Method Toilet # Voids 1 2 Weight 76.204 kg GENERAL: The patient is lying in bed and is not in acute distress. NEUROLOGICAL: Higher mental function: The patient is awake, alert, oriented to self, place and time. Patient is following commands. No aphasia and no neglect. Cranial nerves: The pupils are round, equal and reactive to light and accommodation. Visual lazo are full to confrontation throughout. Extraocular movement is intact no nystagmus is noted. Facial sensation is normal to touch throughout. The facial strength is normal throughout. Hearing is normal bilaterally to hand rub. Tongue is midline and moved [id number] without any difficulty. No dysarthria is noted. Shoulder shrug is normal bilaterally. Motor: The strength is 5 over 5 throughout. Normal tone and bulk. Cerebellum: Normal finger to nose heel to erwin bilaterally. Sensation: Sensation is normal to touch throughout. Reflexes (right/left): 2+ throughout. Plantars are downgoing bilaterally. 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 It seems that the patient has been having uncontrolled shaking of the right upper extremity for some time after work. EKG shows some abnormality and I spoke with the cardiology team and shows some Q wave inversion. Probable new onset seizure Plan: I ordered MRI the brain seizure protocol, EEG. I started the patient on Keppra 500mg bid since the patient has been having ongoing episodes of jerking of the right M and for some time prior to yesterday's event of urinary incontinence stiffness blank stares. I notified the patient and his fiance that the side effect of the medication can be moved/verbal and if he does have it we can switch him to Lamictal with a tapering dose. Seizure precautions seizure pads Cardiology is consulted and they ordered 2-D echo Because of the new onset likely seizure-like activity, patient was notified per the [place] DMV, to avoid driving for 6 month until seizure-free, avoid heights, avoids swimming unassisted or using heavy machinery. Recommend the patient's to follow up with a neurologist as an outpatient within 1-2 weeks Plan discussed with the patient, his fiance, primary team and cardiology N.P. Thank you for the consultation. Time with Patient: Greater than 30
--- NOTE | 2023-08-06 11:58 | CA ---
Transthoracic Echo Report Name: Jhonny Gallagher Age: 32 Gender: M : 1990 Exam Date: 08/06/2023 09:35 Exam Location: [place] [facility] Ht (in): 69 Wt (lb): 168 Ordering Physician: Chan Valles MD Attending/Referring Phys: Plan Nurse Juan Murphy Procedure CPT: Indications: Syncope Cardiac Hx: Technical Quality: Good Contrast 1: Total Dose (mL): Contrast 2: Total Dose (mL): MEASUREMENTS (Male / Female) Normal Values 2D ECHO LV Diastolic Diameter PLAX 4.7 cm 4.2 - 5.9 / 3.9 - 5.3 cm LV Systolic Diameter PLAX 2.9 cm IVS Diastolic Thickness 1.0 cm 0.6 - 1.0 / 0.6 - 0.9 cm LVPW Diastolic Thickness 1.0 cm 0.6 - 1.0 / 0.6 - 0.9 cm LV Relative Wall Thickness 0.4 RV Internal Dim ED PLAX 3.2 cm LVOT Diameter 2.2 cm Aortic Root Diameter 3.1 cm LV Diastolic Volume MOD BP 59.7 cm??? 67 - 155 / 56 - 104 cm??? LV Systolic Volume MOD BP 26.6 cm??? 22 - 58 / 19 - 49 cm??? LV Ejection Fraction MOD BP 55.4 % >= 55 % LV Cardiac Index MOD BP 992.1 cm???/min???m??? LV Diastolic Volume MOD 4C 56.2 cm??? LV Systolic Volume MOD 4C 27.5 cm??? LV Ejection Fraction MOD 4C 51.1 % LV Cardiac Index MOD 4C 862.4 cm???/min???m??? LV Diastolic Length 4C 7.7 cm LV Systolic Length 4C 7.0 cm LV Diastolic Volume MOD 2C 61.9 cm??? LV Systolic Volume MOD 2C 25.9 cm??? LV Ejection Fraction MOD 2C 58.3 % LV Cardiac Index MOD 2C 1082.2 cm???/min???m??? LV Diastolic Length 2C 7.5 cm LV Systolic Length 2C 7.0 cm LA Volume 32.5 cm??? 18 - 58 / 22 - 52 cm??? LA Volume Index 16.8 cm???/m??? 16 - 28 cm???/m??? Ascending Aorta Diameter 2.8 cm DOPPLER AV Peak Velocity 99.7 cm/s AV Peak Gradient 4.0 mmHg LVOT Peak Velocity 86.7 cm/s LVOT Peak Gradient 3.0 mmHg LVOT Velocity Time Integral 18.3 cm LVOT Stroke Volume 68.5 cm??? LVOT Stroke Volume Index 35.7 ml/m??? LVOT Cardiac Index 2055.2 cm???/min???m??? AV Area Cont Eq pk 3.3 cm??? MR Peak Velocity 372.9 cm/s MR Peak Gradient 55.6 mmHg MV E' Velocity 14.7 cm/s TR Peak Velocity 196.5 cm/s TR Peak Gradient 15.5 mmHg Right Ventricular Systolic Press 20.5 mmHg PV Peak Velocity 98.4 cm/s PV Peak Gradient 3.9 mmHg FINDINGS Left Ventricle NormalLV size and wall thickness. Left ventricular ejection fraction is estimated at 55-60 %. Right Ventricle Normal right ventricular size and function. Right Atrium Normal right atrial size. Left Atrium Normal left atrial size. Mitral Valve Structurally normal mitral valve. Mild MR. Aortic Valve Trileaflet aortic valve. No aortic stenosis. No aortic regurgitation. Tricuspid Valve Structurally normal tricuspid valve. Trace TR. Pulmonic Valve Structurally normal pulmonic valve. Trace PI. Pericardium Normal pericardium. Aorta Normal size aortic root and proximal ascending aorta. CONCLUSIONS Normal LV systolic function Previewed by: Dr. Kevin Hairston MD (Electronically Signed) Final Date: 06 August 2023 11:57
[2023-08-06] MEDS: levETIRAcetam 500 MG TAB PO SCH (15:16)
--- NOTE | 2023-08-06 15:29 | P.PN ---
Subjective Progress Note Date: 08/06/23 Hospital course: Patient is a pleasant 32-year-old male with no reported past medical history. He presented to the emergency department on 08/05/23 with a chief complaint of loss of consciousness. Patient reports he was at work when he developed sudden onset nausea and dizziness/lightheadedness and leaned up against the wall to hold him up because everything seemed to go black. Patient reports his colleague was nearby and assisted him. He reports he does not believe he truly lost consciousness but states everything went black and fuzzy. He denies having any ringing in his ears or any changes in vision. He does report involuntary loss of bladder. This episode was witnessed by coworkers and there were no reported signs of shaking/trembling noted but they did report that he seemed to be in a dazed and appeared to be gazing off and upon awakening had some word finding difficulties. Patient reports 1 previous episode similar to this within the last year. He underwent full evaluation in the emergency department. CT head was completed negative for acute intercranial process. EKG completed showing normal sinus rhythm at 66 bpm with prominent Q waves in inferior leads 2, 3, aVF upon personal review and interpretation. Labs were completed and reviewed. CBC unremarkable. Coagulation profile normal findings. D-dimer 0.18. BMP unremarkable. Blood glucose 98. Magnesium 1.9. Troponin negative at less than 0.012. Urine drug screen negative. Patient was admitted under our services with consultation to cardiology and neurology. Physical exam: Vital signs reviewed and stable. General: Nontoxic, no distress and appears stated age. Derm: Skin warm and dry, normal coloration for ethnicity. Head: Atraumatic, normocephalic and symmetric. Eyes: EOMs intact, no lid lag, and anicteric sclera Mouth: no lip lesions, mucus membranes moist Cardiovascular: regular rate and rhythm with normal S1S2, no murmur, positive posterior tibial pulses bilaterally, and cap refill < 2 seconds. Lungs: Respirations even, regular, and unlabored on room air. Lungs CTA bilaterally, no rhonchi, no rales, no wheezing, and no accessory muscle usage. Abdominal: soft, nontender to palpation, no guarding, no appreciable organomegaly Ext: ROM intact. No gross muscle atrophy, no edema, no contractures Neuro: Speech clear, face symmetrical and CN II-XII grossly intact with no noted focal neuro deficits Psych: Alert and oriented to person, place, time, and situation. Appropriate and pleasant affect. Assessment and Plan of Care: Syncopal episode, likely seizure episode with positive loss of urine vs cardiogenic in light of EKG changes Abnormal EKG with prominent Q waves in inferior leads -Neurology following, Discussed plan of care with a neurologist recommending EEG and MRI brain. -Cardiology following, stated ablation of echocardiogram today and will reevalua te for possible stress testing tomorrow. -Patient to remain on continuous Telemetry monitoring -Order placed for seizure precautions and neuro checks every 4 hours. -Aspirin 81 mg daily. Data and imaging reviewed: -Echocardiogram completed showing preserved EF of 55-60% with no reported valvular or structural abnormalities. -Vital signs reviewed. Blood pressure 125/83, heart rate 59, respiratory rate 18, temp 97.5F, and SpO2 of 99% on room air. -Orthostatic vitals reviewed and negative for orthostatic hypotension. Blood pressure lying 125/83 with heart rate of 55, sitting 138/98 with heart rate of 59, and standing 129/86 with heart rate of 57. CODE STATUS: Full code DVT prophylaxis: Heparin Anticipated discharge date: 24-[address]: 24-48 hours Patient was seen independently by Nurse Pracitioner. This document was prepared using [employer] dictation software. Please allow for errors in bridge attacher, while rare they do occur. Juve Patel NP rendered care for this patient independently, reviewed the findings and plan as documented in the note above. I did not physically speak w ith or examine the patient on this date. Objective - Vital Signs Vital signs: Vital Signs Temp 97.5 F L 08/06/23 07:00 Pulse 55 L 08/06/23 07:00 Resp 18 08/06/23 07:00 BP 125/83 08/06/23 07:00 Pulse Ox 99 08/06/23 07:00 FiO2 Intake & Output 08/05/23 08/06/23 08/06/23 18:59 06:59 18:59 Weight 76.204 kg 76.204 kg Other: Voiding Method Toilet # Voids 2 - Labs CBC & Chem 7: 08/05/23 15:45 08/05/23 15:45
--- NOTE | 2023-08-06 16:29 | EEG ---
ELECTROENCEPHALOGRAM REPORT CLINICAL HISTORY: This is a 32-year-old gentleman with episode of jerking of right upper extremity and blank stares with urinary incontinence. The video EEG is obtained to evaluate for seizure and epileptiform activity. RELEVANT MEDICATION: The patient is not on any antiepileptic drugs. DESCRIPTION: Wakefulness is obtained. During awake state, the posterior-dominant rhythm consists of [id number] voltage of 11 Hz activity, that is well modulated and well sustained. There is no physiological stage II sleep architecture. There is no focal slowing. INTERICTAL AND ICTAL: None. ACTIVATION PROCEDURE: Photic stimulation did not evoke a posterior driving response. There is no abnormality during the photic stimulation. Hyperventilation is not performed. CLINICAL INTERPRETATION: This is a normal routine EEG. There is no focal slowing, epileptiform discharge, or seizure on the EEG. A normal routine EEG does not rule out underlying epilepsy. Clinical correlation is recommended. NELSON / TESSA: [id number] /
[2023-08-06] MEDS ORDERED: ARTIFICIAL TEARS-HYPROMELLOSE DROPS 15 ML BTL BOTH EYES PRN (17:24)
--- NOTE | 2023-08-06 19:24 | MR ---
EXAMINATION TYPE: MR brain wo/w con DATE OF EXAM: 08/06/2023 COMPARISON: CT brain 08/05/2023 HISTORY: Seizure CONTRAST: Performed utilizing 7.5 mL intravenous Gadavist gadolinium contrast. TECHNIQUE: Multiplanar, multiecho imaging on a 3.0 Yue magnet is performed through the brain. Stud y is performed within 24 hours of arrival to the hospital. The craniovertebral junction is normal. The pituitary is normal. Diffusion-weighted imaging is performed. No abnormal hyperintensity is present to suggest an acute i ntracranial infarct or acute ischemic change. Signal through the brain is normal. Temporal lobes are symmetrical. No abnormal enhancement is eviden t. Ventricles and sulci are appropriate for the patient age. There is some mucosal thickening within ethmoid air cells. Some mild mucosal thickening inferior maxi llary sinuses. IMPRESSION: 1. Unremarkable pre and postcontrast MRI brain.
[2023-08-06 19:44] LABS: Chol/HDL Ratio 3.03 Ratio; LDL Cholesterol,Calculated 86.4 mg/dL (0.0-131.0)
[2023-08-06] MEDS ORDERED: ATORVASTATIN 40 MG TAB PO SCH (21:00)
[2023-08-07] MEDS: levETIRAcetam 500 MG TAB PO SCH ×2 (00:01→08:42)
[2023-08-07] MEDS: HEPARIN SODIUM,PORCINE 5,000 UNIT/ML 1 ML VIAL SQ SCH ×2 (00:02→08:42)
[2023-08-07] MEDS ORDERED: SODIUM CHLORIDE 0.9% 1,000 ML IV SCH (08:15)
[2023-08-07] MEDS: ASPIRIN 81 MG PO SCH (08:42)
--- NOTE | 2023-08-07 11:13 | P.PN ---
Subjective HISTORY OF PRESENT ILLNESS: This is a 32-year-old male with no significant past medical history. 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 We have been asked to see the patient in consultation for chest pain and near syncope. Patient examined at the bedside. Patient states yesterday morning he was at work and was feeling in his normal state of health. He states in the morning he drank a bottle of water and had a banana for breakfast. 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 He states he also felt lightheaded and had blurred vision. He reports having an episode of incontinence. He states that he felt like he was going to pass out however he did not lose consciousness. His coworker had him go sit in the break room and his super visor came in to see him who noted he was pale. The patient reports having pins and needle sensation in his fingers at that time and states he could not get his words together. He reports feeling like his joints were stiff and his jaw felt like it was wired shut. Apparently a coworker noted he had some long blank staring as well. The patient reports having some mild chest discomfort yesterday as well. He reports it felt like a tensing up sensation in his chest with mild shortness of breath. He denied having any chest pain this morning at the time of examination. Orthostatic blood pressures were obtained which were negative. The patient denies a history of diabetes, hypertension, or hyperlipidemia. He is a nonsmoker. * EKG reveals sinus mechanism with Q waves inferiorly, new from previous EKG * Current home cardiac medications include none. * No previous echocardiogram available in EMR for review 08/07/2023 Examined this morning at the bedside. Patient denies chest pain or pressure. He denies shortness of breath. He denies dizziness or lightheadedness. He states that he is tired this morning. Vital signs are stable. Repeat EKG performed with resolution of Q waves inferiorly. Echocardiogram completed re vealing normal LV systolic function, mild MR, trace TR PHYSICAL EXAM: VITAL SIGNS: Reviewed. GENERAL: Well-developed in no acute distress. HEENT: Head is normocephalic. Pupils are equal, round. Sclerae anicteric. Mucous membranes of the mouth are moist. Neck supple. No JVD or thyromegaly LUNGS: Respirations even and unlabored. Lungs essentially clear to auscultation bilaterally. HEART: Regular rate and rhythm. S1 and S2 heard. ABDOMEN: Soft. Nondistended. Nontender. EXTREMITIES: Normal range of motion. No clubbing or cyanosis. Peripheral pulses intact. No lower extremity edema NEUROLOGIC: Awake and alert. Oriented x 3. ASSESSMENT: Presyncope, possibly vasovagal in nature, cannot rule out neurologic etiology New onset seizures Chest pain, troponins negative 3 Abnormal EKG revealing Q waves inferiorly. EKG with resolution of Q waves PLAN: Discontinue aspirin Patient has been started on Keppra per neurology Tilt table testing unable to be performed on an inpatient basis as Dr. Bangura is out of town. Recommend outpatient tilt table testing Patient is stable for discharge home today from a cardiac standpoint He is to follow up on an outpatient basis with Dr. Hairston We will sign off. Please reconsult if needed. Nurse practitioner note has been reviewed by physician. Signing provider agrees with the documented findings, assessment, and plan of care. Objective - Vital Signs Vital signs: Vital Signs Temp 97.9 F 08/07/23 07:00 Pulse 69 08/07/23 07:00 Resp 15 08/07/23 08:00 BP 112/65 08/07/23 07:00 Pulse Ox 99 08/07/23 07:00 FiO2 Intake & Output 08/06/23 08/07/23 08/07/23 18:59 06:59 18:59 Intake Total 298 Balance 298 Intake: Oral 298 Other: Voiding Method Toilet Toilet # Voids 2 2 - Labs CBC & Chem 7: 08/05/23 15:45 08/05/23 15:45
--- NOTE | 2023-08-07 12:30 | P.DS ---
Providers Date of admission: 08/05/23 18:25 Expected date of discharge: 08/07/23 Attending physician: Maria Bee DO Consults: 08/05/23 22:57 Consult Physician Urgent Consulting Provider: Gerson Eugene Consult Reason/Comments: suspected seizure Do you want consulting provider notified?: Yes Primary care physician: Stated None Hospital Course: Discharge Diagnosis: Syncopal episode, likely seizure episode with positive loss of urine vs cardiogenic in light of EKG changes. Abnormal EKG with prominent Q waves in inferior leads. Panic attack, patient provided with a single dose of Xanax 1 mg by mouth. Patient was offered evaluation by psychiatry but declined. Patient provided with outpatient resources and outpatient counselors available. Hospital Course: Patient is a pleasant 32-year-old male with no reported past medical history. He presented to the emergency department on 08/05/23 with a chief complaint of loss of consciousness. Patient reports he was at work when he developed sudden onset nausea and dizziness/lightheadedness and leaned up against the wall to hold him up because everything seemed to go black. Patient reports his colleague was nearby and assisted him. He reports he does not believe he truly lost consciousness but states everything went black and fuzzy. He denies having any ringing in his ears or any changes in vision. He does report involuntary loss of bladder. This episode was witnessed by coworkers and there were no reported signs of shaking/trembling noted but they did report that he seemed to be in a dazed and appeared to be gazing off and upon awakening had some word finding difficulties. Patient reports 1 previous episode similar to this within the last year. He underwent full evaluation in the emergency department. CT head was completed negative for acute intercranial process. EKG completed showing normal sinus rhythm at 66 bpm with prominent Q waves in inferior leads 2, 3, aVF upon personal review and interpretation. Labs were completed and reviewed. CBC unremarkable. Coagulation profile normal findings. D-dimer 0 .18. BMP unremarkable. Blood glucose 98. Magnesium 1.9. Troponin negative at less than 0.012. Urine drug screen negative. Patient was admitted under our services with consultation to cardiology and neurology. Patient was evaluated by a neurologist and underwent a routine EEG which was negative showing no focal slowing, epileptiform discharges, or seizure activity on EEG. MRI brain was completed negative for acute process. Patient was evaluated by cardiology. Echocardiogram was completed revealing a normal preserved EF of 55-60% with no valvular or structural abnormalities reported. Cardiology recommending patient follow up outpatient for tilt table testing in clearing patient from cardiac perspective for discharge home and outpatient follow-up. Medically, patient is stable for discharge at this time. He was started on Keppra 500 mg twice daily. When discussed [place] state law regarding seizures/syncopal episodes and loss stating no driving for 6 months patient had panic attack in room. Patient was medicated with a single dose of Xanax and was unable to regain control with no further episodes of panic attacks/anxiety.. Physical exam: Vital signs reviewed and stable. General: Nontoxic, no distress and appears stated age. Derm: Skin warm and dry, normal coloration for ethnicity. Head: Atraumatic, normocephalic and symmetric. Eyes: EOMs intact, no lid lag, and anicteric sclera Mouth: no lip lesions, mucus membranes moist Cardiovascular: regular rate and rhythm with normal S1S2, no murmur, positive posterior tibial pulses bilaterally, and cap refill < 2 seconds. Lungs: Respirations even, regular, and unlabored on room air. Lungs CTA bilaterally, no rhonchi, no rales, no wheezing, and no accessory muscle usage. Abdominal: soft, nontender to palpation, no guarding, no appreciable organomegaly Ext: ROM intact. No gross muscle atrophy, no edema, no contractures Neuro: Speech clear, face symmetrical and CN II-XII grossly intact with no noted focal neuro deficits Psych: Alert and oriented to person, place, time, and situation. Appropriate and pleasant affect. A total of 37 minutes of time were spent preparing this complex discharge summary. Pt was discharged on 08/07/23 at 12:25 PM. Patient was seen independently by Nurse Practitioner. This document was prepared using [employer] dictation software. Please allow for errors in special education resource room teacher while rare they do occur. Juve Patel NP rendered care for this patient independently, reviewed the findings and plan as documented in the note above. I did not physically speak with or examine the patient on this date. Patient Condition at Discharge: Stable Plan - Discharge Summary New Discharge Prescriptions: New levETIRAcetam [Keppra] 500 mg PO Q12HR 90 Days #180 tab Discharge Medication List levETIRAcetam [Keppra] 500 mg PO Q12HR 90 Days #180 tab 08/07/23 [Rx] Follow up Appointment(s)/Referral(s): Kevin Hairston MD [STAFF PHYSICIAN] - 1 Week (Office will call with appoinment time and date.) Abran Ga MD [REFERRING] - 1 Week Onur Crowell MD [Medical Doctor] - 1 Week Patient Instructions/Handouts: Seizure/Epilepsy Discharge Instructions & Follow-Up, Levetiracetam (By mouth), Syncope (DC) Activity/Diet/Wound Care/Special Instructions: Activity: As tolerated. Take breaks as needed. Diet: Heart healthy and carb consistent diet. Special Instructions: Take all of your medications as directed and remember to keep all of your do ctor's appointments and follow-up as needed. You will need to follow up outpatient with supervisor lace tearing to schedule tilt table testing as recommended. [place] state law states no driving until seizure/syncope free for 6 months. It is also important to avoid climbing ladders, operating dangerous or heavy machinery or unsupervised swimming until seizure/syncope free for 6 months. Thank you for allowing us to participate in your care, it was truly a pleasure having you for our patient!!! Discharge/Stand Alone Forms: Community Resources, Outpatient Counseling, Work/ School Release / Restrict Discharge Disposition: HOME SELF-CARE
[2023-08-07] MEDS ORDERED: ALPRAZolam 1 MG TAB PO STA (12:33)
[2023-08-07 14:38] VITALS: BP 109/74; PULSE 95; RESP 18; TEMP 97.6
--- NOTE | 2023-08-07 14:42 | P.PN ---
Subjective Progress Note Date: 08/07/23 I am following-up with patient and no further seizures. Objective - Vital Signs Vital signs: Vital Signs Temp 97.6 F 08/07/23 14:31 Pulse 95 08/07/23 14:31 Resp 18 08/07/23 14:31 BP 109/74 08/07/23 14:31 Pulse Ox 98 08/07/23 14:31 FiO2 Intake & Output 08/06/23 08/07/23 08/07/23 18:59 06:59 18:59 Intake Total 298 240 Balance 298 240 Intake: Oral 298 240 Other: Voiding Method Toilet Toilet # Voids 2 2 - Exam GENERAL: The patient is lying in bed and is not in acute distress. NEUROLOGICAL: Higher mental function: The patient is awake, alert, oriented to self, place and time. Patient is following commands. No aphasia and no neglect. Cranial nerves: The pupils are round, equal and reactive to light and accommodation. Visual lazo are full to confrontation throughout. Extraocular movement is intact no nystagmus is noted. Facial sensation is normal to touch throughout. The facial strength is normal throughout. Hearing is normal bilaterally to hand rub. Tongue is midline and moved [id number] without any difficulty. No dysarthria is noted. Shoulder shrug is normal bilaterally. Motor: The strength is 5 over 5 throughout. Normal tone and bulk. Cerebellum: Normal finger to nose heel to erwin bilaterally. Sensation: Sensation is normal to touch throughout. Reflexes (right/left): 2+ throughout. Plantars are downgoing bilaterally. Some other workup during his hospital visit consisted of: CBC and chemistry panel is unremarkable. Initial serum glucose is 98. Troponin was less than 0.12. Urine drug screen is not detected. Shimmer alcohol was less than 10. CT head is reported as no acute intracranial process. I personally reviewed the CT head and I agree with report. EKG is reported as possible left ventricle hypertrophy at. Probable lateral myocardial infarction of indeterminate age. Inferior myocardial infarction of indeterminate age. Abnormal EKG. Routine EEG: Is nromal. MRI Brain w/ and w/o is unremarkable. 2D echo: Normal LV systolic function. 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 It seems that the patient has been having uncontrolled shaking of the right upper extremity for some time after work. EKG shows some abnormality and I spoke with the cardiology team and shows some Q wave inversion. Probable new onset seizure. I cannot rule out nonepileptic seizures. EEG and MRI Brain are normal. Plan: I started the patient on Keppra 500mg bid since the patient has been having ongoing episodes of jerking of the right hand and for some time prior to yesterday's event of urinary incontinence stiffness blank stares. I notified the patient and his fiance that the side effect of the medication can be moved/verbal and if he does have it we can switch him to Lamictal with a tapering dose. Seizure precautions seizure pads Cardiology is on board. Because of the new onset likely seizure-like activity, patient was notified per the [place] DMV, to avoid driving for 6 month until seizure-free, avoid heights, avoids swimming unassisted or using heavy machinery. Recommend the patient's to follow up with a neurologist as an outpatient within 1-2 weeks. Recommend the patient to follow-up with a psychiatrist. Plan discussed with the patient, N.P. from primary team and his nurse. There is no further neurological work-up. Will sign off. Please reconsult if needed. Time with Patient: Less than 30
== END 2023-08-07 16:15 | disposition home or self-care (01) ==
LOC: EC 15:09 → 6NMEDSUR 18:25
PROVIDERS: ADMIT Internal Medicine; ATTEND Internal Medicine
DX: R55 Syncope and collapse (principal); R07.9 Chest pain, unspecified; R94.31 Abnormal electrocardiogram [ECG] [EKG]; F41.0 Panic disorder [episodic paroxysmal anxiety]; F32.A Depression, unspecified; Z87.891 Personal history of nicotine dependence
CPT/HCPCS: 96372 ×2; 96360; 96361; 99285; 36415; 95816; 93005; 93306; 85379; 80061; 80048; 82550; 83735; 84484 ×2; 85025; 85610; 85730; 81001; 80306; 80320; 70450; 70553; G0378 ×3; J1644 ×2; A9585

== ENCOUNTER → 2024-12-29 | Outpatient (CLI) | payer OTHER ==
[2024-12-29 15:35] LABS: Basophils # (A) 0.07 X 10*3/uL (0.00-0.10); Basophils % (A) 0.6 %; Eosinophils # (A) 0.08 X 10*3/uL (0.04-0.35); Eosinophils % (A) 0.7 %; HCT 45.7 % (39.6-50.0); HGB 14.7 g/dL (13.0-17.0); Lymphocytes # (A) 3.99 X 10*3/uL (0.90-5.00); Lymphocytes % (A) 34.6 %; MCH 28.5 pg (27.0-32.0); MCHC 32.2 g/dL (32.0-37.0); MCV 88.7 FL (80.0-97.0); Mean Platelet Volume 11.8 FL (9.5-12.2); Monocytes % (A) 7.8 %; NRBC Per 100 WBC 0 X 10*3/uL (0.00-0.01); Neutrophils # (A) 6.32 X 10*3/uL (1.80-7.70); Neutrophils % (A) 54.7 %; Platelet Count 183 X 10*3/uL (140-440); RBC 5.15 X 10*6/uL (4.40-5.60); RDW 12.6 % (11.5-14.5); WBC 11.54 X 10*3/uL (4.50-10.00)
[2024-12-29 15:54] LABS: C Reactive Protein <0.30 mg/dL (0.00-0.80); Rheumatoid Factor, Qnt <15 IU/mL (0-15); Uric Acid 6.2 mg/dL (3.7-8.7)
[2024-12-29 16:11] LABS: Erythrocyte Sedimentation Rate 9 mm/Hr (0-15)
[2024-12-29 19:42] LABS: Anti-DNA, DS unit <1.0 IU/mL; DNA Double-Stranded Negative (Negative)
[2024-12-30 10:51] LABS: HLA B27 NEGATIVE
== END | disposition home or self-care (01) ==
LOC: LABWHC1 09:03
PROVIDERS: ATTEND Orthopaedic Surgery
DX: M25.50 Pain in unspecified joint (principal)
CPT/HCPCS: 36415; 84550; 85025; 85652; 86038; 86140; 86225; 86431; 86812